=== PATIENT | female | born 1990 | race African-American/Black ===

== ENCOUNTER 2019-01-23 23:50 | Emergency (ER) | payer OTHER ==
[2019-01-24] MEDS ORDERED: Acetaminophen 500 MG TAB ONE (00:42)
== END 2019-01-24 00:48 | disposition home or self-care (01) ==
LOC: ERS 23:50
DX: O99.613 Diseases of the digestive system complicating pregnancy, third trimester (principal); K08.89 Other specified disorders of teeth and supporting structures; Z3A.33 33 weeks gestation of pregnancy
CPT/HCPCS: 99282

== ENCOUNTER 2021-10-26 08:54 | Emergency (ER) | payer MEDICAID, OTHER, SELFPAY | END 2021-10-26 09:59 | disposition home or self-care (01) | LOC: ERS 08:54 | DX: S61.317A Laceration without foreign body of left little finger with damage to nail, initial encounter (principal); F17.210 Nicotine dependence, cigarettes, uncomplicated; W23.0XXA Caught, crushed, jammed, or pinched between moving objects, initial encounter | CPT/HCPCS: 11760 ==